=== PATIENT | male | born 1995 | race African-American/Black ===

== ENCOUNTER 2020-08-22 10:57 | Emergency (ER) | payer BC, OTHER ==
[~2020-08-22] VITALS: Ht 180.3 cm; Wt 86.2 kg
[2020-08-22 11:55] VITALS: BP 103/74
[2020-08-22] MEDS ORDERED: CYCLOBENZAPRINE5 MG PO (12:10)
[2020-08-22] MEDS ORDERED: NORCO5 PO (12:10)
== END 2020-08-22 12:30 | disposition home or self-care (01) ==
LOC: ER 10:57
DX: S92.412A Displaced fracture of proximal phalanx of left great toe, initial encounter for closed fracture (principal); S46.912A Strain of unspecified muscle, fascia and tendon at shoulder and upper arm level, left arm, initial encounter; V49.9XXA Car occupant (driver) (passenger) injured in unspecified traffic accident, initial encounter; Y93.89 Activity, other specified; Y92.89 Other specified places as the place of occurrence of the external cause; Y99.8 Other external cause status